=== PATIENT | male | born 1950 | race Caucasian/White ===

== ENCOUNTER 2018-10-28 21:27 | Emergency (ER) | payer BC ==
[2018-10-29] MEDS: LIDOCAINE 2% VISC 15 ML CUP PO (00:02)
[2018-10-29] MEDS: IBUPROFEN 200 MG TAB PO (00:02)
== END 2018-10-29 00:14 | disposition home or self-care (01) ==
LOC: FTE 10-29 00:14
DX: J02.9 Acute pharyngitis, unspecified (principal); J06.9 Acute upper respiratory infection, unspecified
CPT/HCPCS: 99283